=== PATIENT | male | born 1980 | race Two or more races ===

== ENCOUNTER 2021-03-01 20:03 | Emergency (ER) | payer OTHER ==
[2021-03-01] MEDS ORDERED: Sodium Chloride 0.9% 1,000 ML IV SCH (20:30)
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
[2021-03-01] MEDS ORDERED: Sodium Chloride 0.9% 10 ML Syringe FLUSH PRN (21:04)
[2021-03-01] MEDS ORDERED: Iopamidol 612 MG/ML 100 ML Bottle IVPUSH ONE (21:04)
--- NOTE | 2021-03-01 21:22 | CR ---
Right knee: AP, lateral and sunrise patellar views of the right knee were obtained. Comparison: No prior knee study is available. Medial and lateral joint compartments are maintained in height. Patellofemoral joint appears within normal limits. No joint effusion is seen. No acute fracture or dislocation is seen. Impression: 1. Nothing acute is seen on 3 view right knee exam. Diagnostic code #1
--- NOTE | 2021-03-01 21:24 | CR ---
Right hand: 4 views of the right hand were obtained. Comparison: No prior hand study is available. Joint spaces are maintained. On the lateral view there is minimal lucency within the corner volar base of the middle phalanx of the fourth finger. Uncertain if this is artifact or due to a small nondisplaced fracture. No additional fracture or dislocation is seen. Impression: 1. Questionable small fracture within the corner volar base of the middle phalanx of the right fourth finger. This could be artifact as well. Please correlate if patient is symptomatic to this region. 2. Other portions of the right hand exam are within normal limits. Diagnostic code #3
[2021-03-01] MEDS ORDERED: Ibuprofen 600 MG Tab PO ONE (22:38)
[2021-03-01] MEDS ORDERED: Potassium Chloride 20 MEQ Tab.ER PO ONE (22:38)
--- NOTE | 2021-03-02 06:28 | CR ---
Left forearm: 2 views left forearm were obtained. Comparison: No prior forearm studies available. Radiopacity is seen along the posterior and radial side of the wrist most likely representing artifact. No acute fracture, dislocation or other bony abnormality is appreciated. Impression: 1. Findings felt compatible with artifact within the left wrist. 2. No acute osseous abnormality is seen. Diagnostic code #2
--- NOTE | 2021-03-02 14:07 | CT ---
Head CT Technique: Multiple axial sections through the brain were obtained. Intravenous contrast was not utilized. Reconstructed coronal and sagittal images were obtained. Comparison: No prior intracranial imaging is available. Findings: Ventricles along with basal cisterns and sulci over the convexities are within normal limits for the patient's age. No abnormal parenchymal densities are seen. No evidence of intracranial hemorrhage is seen. No midline shift or mass-effect is seen. Bone window settings were reviewed which show mucosal thickening within both maxillary sinuses which most likely is chronic. Minimal mucosal thickening is seen within the inferior left mastoid sinus which is likely chronic. No acute calvarial abnormality is appreciated. Impression: 1. Slight sinus findings which are most likely chronic. 2. Nothing acute is appreciated on noncontrast head CT study. Diagnostic code #2 MTDD
--- NOTE | 2021-03-02 14:08 | CT ---
CT cervical spine Technique: Multiple axial sections were obtained from above C1 inferiorly to the lower T2 level. Reconstructed coronal and sagittal images were obtained. Comparison: No prior cervical spine imaging is available. Findings: Vertebral body heights and disc spaces are maintained. No bony central or bony neural foraminal stenosis is seen. No acute fracture or subluxation is seen. Impression: 1. Nothing acute is seen on CT study of the cervical spine. Diagnostic code #1 MTDD
--- NOTE | 2021-03-02 14:09 | CT ---
CT facial bones Technique: Multiple axial sections were obtained through the maxillofacial structures. Reconstructed coronal and sagittal images were obtained. Comparison: No prior study is available. Findings: Right and left globes are symmetric in size. No retrobulbar abnormality is seen. Minimal nasal septal deviation is seen which appears to be chronic. Mild mucosal thickening is seen within both maxillary sinuses. There is one tooth socket which is empty of a tooth. This is located within the left mandible and please correlate if this represents prior surgery or represents an acute tooth loss. No acute fracture is appreciated. Impression: 1. One tooth socket within the left side of the mandible which contains no tooth. Please correlate if this is due to previous surgery or represents tooth loss. 2. Other findings believed to be incidental. 3. No acute facial bone fracture is seen. Diagnostic code #2 MTDD
--- NOTE | 2021-03-02 14:10 | CT ---
CT chest Technique: Multiple axial sections were obtained from above the lung apices inferiorly through the lung bases. Intravenous contrast was utilized. Reconstructed coronal and sagittal images were obtained. Comparison: No prior chest study is available. Thoracic aorta shows no aneurysm. Small subcutaneous lesion is noted anteriorly within the upper soft tissues of the mid chest which is believed to be benign and measures 1.9 cm. Mediastinum and hilar regions show no adenopathy. No pericardial thickening is seen. No axillary adenopathy is appreciated. Lung window settings show no acute parenchymal change. No pleural effusions or pneumothorax is seen. Bone window settings were reviewed which show no acute osseous finding. Impression: 1. Small skin lesion within the anterior chest believed to be benign. 2. Nothing acute is seen on CT study of the chest. Diagnostic code #2 CT abdomen and pelvis Technique: Multiple axial sections were obtained from above the dome of the diaphragm inferiorly through the pubic symphysis. Intravenous contrast was utilized. Delayed images were obtained through the abdomen and pelvis. Reconstructed coronal and sagittal images were also obtained. Comparison: No prior CT abdomen or pelvis exam is available. Findings: Liver contains no focal parenchymal abnormality. Spleen appears within normal limits. Adrenal glands show no nodule. Pancreas shows no discrete abnormality. Gallbladder contains no calcified gallstones. Kidneys show symmetric contrast enhancement without hydronephrosis or acute abnormality. Abdominal aorta shows no aneurysm. No retroperitoneal adenopathy is seen. Appendix is seen which is normal in size. No pelvic mass or adenopathy is seen. Delayed images show contrast excretion within both ureters which show no dilatation. Contrast is noted within the bladder. No free fluid or inflammatory change is appreciated. Bone window settings were reviewed which show a deformity of the L3 vertebral body which appears to represent a developmental anomaly. No acute osseous abnormality is appreciated. Impression: 1. Slight deformity within the L3 vertebral body which is felt to be developmental. 2. Nothing acute is appreciated on CT study of the abdomen and pelvis. Diagnostic code #2 MTDD
== END 2021-03-01 23:22 | disposition home or self-care (01) ==
LOC: JD.ED 20:03
DX: S62.624A Displaced fracture of middle phalanx of right ring finger, initial encounter for closed fracture (principal); E87.6 Hypokalemia; V53.5XXA Driver of pick-up truck or van injured in collision with car, pick-up truck or van in traffic accident, initial encounter
CPT/HCPCS: 36415; 70450; 70486; 71260; 72125; 73090; 73130; 73562; 74177; 80053; 85025; 99285; A9270; J7030; Q9967; 99284

== ENCOUNTER 2022-08-28 18:09 | Emergency (ER) | payer SELFPAY ==
[2022-08-28] MEDS ORDERED: Silver Sulfadiazine 1% Crm 50 GM Tube TOP ONE (19:08)
== END 2022-08-28 19:37 | disposition home or self-care (01) ==
LOC: JD.ED 18:09
DX: T23.101A Burn of first degree of right hand, unspecified site, initial encounter (principal); T23.102A Burn of first degree of left hand, unspecified site, initial encounter; Z79.899 Other long term (current) drug therapy; Z86.16 Personal history of COVID-19; X08.8XXA Exposure to other specified smoke, fire and flames, initial encounter
CPT/HCPCS: 16000; 99283; A9270